=== PATIENT | male | born 1940 | race Caucasian/White ===

== ENCOUNTER 2022-02-18 16:45 | Emergency (ER) | payer MEDICARE ==
[~2022-02-18] VITALS: Ht 190.5 cm; Wt 95.2 kg
[2022-02-19] MEDS ORDERED: METOPROLOL TART25 MG PO (10:47)
[2022-02-19] MEDS ORDERED: ATORVASTATIN CA20 MG PO (10:47)
== END 2022-02-18 18:40 | disposition home or self-care (01) ==
LOC: ER 16:45
DX: R04.0 Epistaxis (principal)
CPT/HCPCS: 30903; 99282-25

== ENCOUNTER 2022-02-19 10:22 | Emergency (ER) | payer MEDICARE ==
[~2022-02-19] VITALS: Ht 190.5 cm; Wt 95.2 kg
[2022-02-19] MEDS ORDERED: ATORVASTATIN CA20 MG PO (10:47)
[2022-02-19] MEDS ORDERED: METOPROLOL TART25 MG PO (10:47)
[2022-02-20] MEDS ORDERED: Aspir 8181 MG PO (07:47)
== END 2022-02-19 12:15 | disposition home or self-care (01) ==
LOC: ER 10:22
DX: R04.0 Epistaxis (principal); E78.5 Hyperlipidemia, unspecified; I10 Essential (primary) hypertension; Z79.899 Other long term (current) drug therapy
CPT/HCPCS: 30903; 99283-25

== ENCOUNTER 2022-02-20 07:11 | Emergency (ER) | payer MEDICARE ==
[~2022-02-20] VITALS: Ht 190.5 cm; Wt 95.2 kg
[~2022-02-20 07:11] MED LIST: ATORVASTATIN CA20 MG PO; METOPROLOL TART25 MG PO
[2022-02-20] MEDS ORDERED: Aspir 8181 MG PO (07:47)
== END 2022-02-20 10:04 | disposition home or self-care (01) ==
LOC: ER 07:11
DX: R04.0 Epistaxis (principal); I10 Essential (primary) hypertension
CPT/HCPCS: 99282